=== PATIENT | female | born 1935 | race Caucasian/White ===

== ENCOUNTER 2016-09-05 13:34 | Emergency (ER) | payer OTHER, MEDICARE ==
--- NOTE | 2016-09-05 13:39 | EDPHY ---
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 - Social History Smoking Status: Never smoked Allergies/Adverse Reactions: No Known Allergies Allergy (Verified 11/14/14 14:37) Home Medications: Medication Instructions Recorded Spironolactone [Aldactone 25 MG 25 mg PO DAILY #30 tab 11/01/13 (*)] C/E/Zn/Cu/OM3/DHA/EPA/LUT/ZEAX 1 cap PO DAILY 11/14/14 [Preservision Areds 2 Softgel] Digoxin 250 mcg PO DAILY 11/14/14 Herbals/Supplements -Info Only 1 ea PO DAILY 11/14/14 Warfarin Sodium [Coumadin 5MG (*)] 5 mg PO MWF@16 11/14/14 Warfarin Sodium [Coumadin 5MG (*)] 7.5 mg PO SUTUTHSA@17 11/14/14 Carvedilol [Coreg (*)] 6.25 mg PO BID #60 tab 11/18/14 Furosemide [Lasix] 20 mg PO DAILY #30 tab 11/18/14 Lisinopril 2.5 mg PO DAILY #0 tablet 11/18/14 Medical Decision Making ED Course/Re-evaluation: CHIEF COMPLAINT: HISTORY OF PRESENT ILLNESS: must have 4 elements: Location, Quality, Severity , Duration, Timing, Context, Modifying Factors, Associated Signs and Symptoms REVIEW OF SYSTEMS: A 10 point review of systems was performed and is negative with the exception of the elements mentioned in the history of present illness. PHYSICAL EXAM: HR, BP, O2 Sat, RR. Temp noted General Appearance: Alert, well hydrated, appropriate, and non-toxic appearing. Head: Atraumatic without scalp tenderness or obvious injury Eyes: Pupils equal, round, reactive to light and accommodation, EOMI, no trauma , no injection. Ears: Clear bilaterally, no perforation, normal landmarks Nose: Atraumatic, no rhinorrhea, clear. Throat: There is no erythema or exudates, no lesions, normal tonsils, mucus membranes moist. Neck: Supple, 2+ carotid upstroke, nontender, no lymphadenopathy. Respiratory: No retractions, no distress, no wheezes, and no accessory muscle use. Lungs are clear to auscultation bilaterally. Cardiovascular: Regular rate and rhythm, no murmurs, rubs, or gallops. Bilateral carotid, radial, dorsalis pedis, and posterior tibial pulses intact. Good capillary refill all extremities. Gastrointestinal: Abdomen is soft, nontender, non-distended, no masses, no rebound, no guarding, no peritoneal signs. Musculoskeletal: Normal active ROM of all extremities, atraumatic. Neurological: Alert, appropriate, and interactive. The patient has normal DTRs and non-focal cranial nerves, motor, sensory, and cerebellar exam. Skin: No rashes, good turgor, no nodules on palpation. Past medical history: Past surgical history: Family history: Social history: DIAGNOSTICS/PROCEDURES/CRITICAL CARE TIME: DIFFERENTIAL DIAGNOSIS: MEDICAL DECISION MAKING:
--- NOTE | 2016-09-05 13:40 | EDPHY ---
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 - Social History Smoking Status: Never smoked Constitutional: Initial Vital Signs Temperature (C) 37 C 09/05/16 13:58 Heart Rate 87 09/05/16 13:58 Respiratory Rate 16 09/05/16 13:58 Blood Pressure 130/75 H 09/05/16 13:58 O2 Sat (%) 96 09/05/16 13:58 O2 Delivery Mode Room Air Allergies/Adverse Reactions: No Known Allergies Allergy (Verified 11/14/14 14:37) Home Medications: Medication Instructions Recorded Spironolactone [Aldactone 25 MG 25 mg PO DAILY #30 tab 11/01/13 (*)] C/E/Zn/Cu/OM3/DHA/EPA/LUT/ZEAX 1 cap PO DAILY 11/14/14 [Preservision Areds 2 Softgel] Digoxin 250 mcg PO DAILY 11/14/14 Herbals/Supplements -Info Only 1 ea PO DAILY 11/14/14 Warfarin Sodium [Coumadin 5MG (*)] 5 mg PO MWF@16 11/14/14 Warfarin Sodium [Coumadin 5MG (*)] 7.5 mg PO SUTUTHSA@17 11/14/14 Carvedilol [Coreg (*)] 6.25 mg PO BID #60 tab 11/18/14 Furosemide [Lasix] 20 mg PO DAILY #30 tab 11/18/14 Lisinopril 2.5 mg PO DAILY #0 tablet 11/18/14 Medical Decision Making ED Course/Re-evaluation: CHIEF COMPLAINT: Heart palpitations, memory loss. HISTORY OF PRESENT ILLNESS: This patient is a 81 year old female arriving by EMS from her living facility after an episode of what appeared to be acute heart palpitations, per staff. The patient has a cardiac pacemaker and defibrillator that was last set off six months prior to arrival. Upon arrival to the ED, the patient is unsure why she is here. She reports that she is unable to remember the episode but does believe that she felt "off." Staff reports evidence of memory deficits but she is unaware of this. She does not believe she lost consciousness during the episode. She takes Warfarin daily. REVIEW OF SYSTEMS: A 10 point review of systems was performed and is negative with the exception of the elements mentioned in the history of present illness. PHYSICAL EXAM: HR, BP, O2 Sat, RR. Temp noted General Appearance: Alert, well hydrated, appropriate, and non-toxic appearing. Head: Atraumatic without scalp tenderness or obvious injury Eyes: Pupils equal, round, reactive to light and accommodation, EOMI, no trauma , no injection. Ears: Clear bilaterally, no perforation, normal landmarks Nose: Atraumatic, no rhinorrhea, clear. Throat: There is no erythema or exudates, no lesions, normal tonsils, mucus membranes moist. Neck: Supple, 2+ carotid upstroke, nontender, no lymphadenopathy. Respiratory: No retractions, no distress, no wheezes, and no accessory muscle use. Lungs are clear to auscultation bilaterally. Cardiovascular: Regular rate and rhythm, no murmurs, rubs, or gallops. Bilateral carotid, radial, dorsalis pedis, and posterior tibial pulses intact. Good capillary refill all extremities. Gastrointestinal: Abdomen is soft, nontender, non-distended, no masses, no rebound, no guarding, no peritoneal signs. Musculoskeletal: Normal active ROM of all extremities, atraumatic. Neurological: Alert, appropriate, and interactive. The patient has normal DTRs and non-focal cranial nerves, motor, sensory, and cerebellar exam. Skin: No rashes, good turgor, no nodules on palpation. Past medical history: Cardiac pacemaker and defibrillator, hypertension, CHF. Past surgical history: Non-contributory. Family history: Non-contributory. Social history: Lives at [facility]. DIAGNOSTICS/PROCEDURES/CRITICAL CARE TIME: EKG INTERPRETATION: The 12 lead EKG was interpreted by myself: Sinus or extopic atrial rhythm, rate 87; first degree AV block; low voltage in frontal leads. See hard copy and/or "tracemaster" electronic copy for interpretation. DIFFERENTIAL DIAGNOSIS: The differential diagnosis for the patient's heart palpitations included but was not limited to myocardial ischemia, ventricular tachycardia, or, electrolyte abnormality. MEDICAL DECISION MAKING: This 81 year old female presents with amnesia suggestive of a brief episode of heart rhythm abnormality prior to presentation to the ED. The pacemaker rep has been contacted and will interrogate the pacemaker at bedside. 1709: Pacemaker new accounts representative interrogated the pacemaker and reports to me that the patient has not had any evidence of tachycardia since May. - Data Points Laboratory Results: Laboratory Results 09/05/16 13:30 09/05/16 13:30 09/05/16 13:30 WBC 5.86 10^3/uL (3.80-9.50) RBC 4.47 10^6/uL (4.18-5.33) Hgb 13.9 g/dL (12.6-16.3) Hct 40.4 % (38.0-47.0) MCV 90.4 fL (81.5-99.8) MCH 31.1 pg (27.9-34.1) MCHC 34.4 g/dL (32.4-36.7) RDW 13.7 % (11.5-15.2) Plt Count 171 10^3/uL (150-400) MPV 9.1 fL (8.7-11.7) Neut % (Auto) 64.5 % (39.3-74.2) Lymph % (Auto) 26.5 % (15.0-45.0) [place] % (Auto) 7.2 % (4.5-13.0) Eos % (Auto) 1.4 % (0.6-7.6) Baso % (Auto) 0.2 L % (0.3-1.7) Nucleat RBC Rel Count 0.0 % (0.0-0.2) Absolute Neuts (auto) 3.79 10^3/uL (1.70-6.50) Absolute Lymphs (auto) 1.55 10^3/uL (1.00-3.00) Absolute Monos (auto) 0.42 10^3/uL (0.30-0.80) Absolute Eos (auto) 0.08 10^3/uL (0.03-0.40) Absolute Basos (auto) 0.01 L 10^3/uL (0.02-0.10) Absolute Nucleated RBC 0.00 10^3/uL (0-0.01) Immature Gran % 0.2 % (0.0-1.1) Immature Gran # 0.01 10^3/uL (0.00-0.10) PT 24.8 H SEC (12.0-15.0) INR 2.22 H (0.83-1.16) APTT 31.7 SEC (23.0-38.0) Sodium 140 mEq/L (134-144) Potassium 4.8 mEq/L (3.5-5.2) Chloride 101 mEq/L (97-110) Carbon Dioxide 29 mEq/l (22-31) Anion Gap 10 mEq/L (8-16) BUN 20 mg/dL (7-23) Creatinine 0.9 mg/dL (0.6-1.0) Estimated GFR > 60 Glucose 132 H mg/dL (70-100) Calcium 9.5 mg/dL (8.5-10.4) Magnesium 2.0 mg/dL (1.6-2.3) Troponin I < 0.012 ng/mL (0-0.034) Departure - Departure Disposition: Home, Routine, Self-Care Clinical Impression: Palpitations Condition: Good Instructions: Palpitations (ED) Additional Instructions: 1. Follow-up with your medical accounting clerk tomorrow for further evaluation. 2. Return to the Emergency Department with heart palpitations, chest pain, confusion, memory loss, or other serious concerns. Referrals: Jordon Anderson MD [Medical Doctor] - As per Instructions Report Scribed for: Randell Witt Report Scribed by: Tavia Elizabeth Date of Report: 09/05/16 Time of Report: 13:41
--- NOTE | 2016-09-05 13:47 | CPEKG ---
Heart Rate: 87 RR Interval: 690 P-R Interval: 220 QRSD Interval: 94 QT Interval: 344 QTC Interval: 414 P [place]: -83 QRS [place]: 38 T Wave [place]: 109 EKG Severity - ABNORMAL ECG - EKG Impression: SINUS OR ECTOPIC ATRIAL RHYTHM EKG Impression: FIRST DEGREE AV BLOCK EKG Impression: LOW VOLTAGE IN FRONTAL LEADS EKG Impression: CONSIDER ANTEROSEPTAL INFARCT Electronically Signed By: Randell Witt 05-Sep-2016 21:13:48
[2016-09-05 13:58] LABS: % IMMATURE GRANULYOCYTES 0.2 % (0.0-1.1); ABSOLUTE IMMATURE GRANULOCYTES 0.01 10^3/uL (0.00-0.10); ADD DIFF? NO; ADD MORPH? NO; ADD SCAN? NO; ATYPICAL LYMPHOCYTE FLAG 20 (0-99); FRAGMENT RBC FLAG 0 (0-99); HEMATOCRIT 40.4 % (38.0-47.0); HEMOGLOBIN 13.9 g/dL (12.6-16.3); LEFT SHIFT FLG 0 (0-99); LIPEMIA HEMOLYSIS FLAG 90 (0-99); MEAN CELL HEMOGLOBIN 31.1 pg (27.9-34.1); MEAN CELL HEMOGLOBIN CONCENTR. 34.4 g/dL (32.4-36.7); MEAN CELL VOLUME 90.4 fL (81.5-99.8); MEAN PLATELET VOLUME 9.1 fL (8.7-11.7); PLATELET CLUMPS FLAG 0 (0-99); PLATELET COUNT 171 10^3/uL (150-400); RED BLOOD CELL COUNT 4.47 10^6/uL (4.18-5.33); RED CELL DISTRIBUTION WIDTH 13.7 % (11.5-15.2)
[2016-09-05 14:01] LABS: INR 2.22 (0.83-1.16); PROTIME(PATIENT) 24.8 SEC (12.0-15.0)
[2016-09-05 14:02] LABS: APTT 31.7 SEC (23.0-38.0)
[2016-09-05 14:05] LABS: ANION GAP 10 mEq/L (8-16); CALCIUM 9.5 mg/dL (8.5-10.4); CARBON DIOXIDE 29 mEq/l (22-31); CHLORIDE 101 mEq/L (97-110); CREATININE 0.9 mg/dL (0.6-1.0); GLOMERULAR FILTRATION RATE > 60; GLUCOSE 132 mg/dL (70-100); POTASSIUM 4.8 mEq/L (3.5-5.2); SODIUM 140 mEq/L (134-144)
[2016-09-05 14:17] LABS: TROPONIN I < 0.012 ng/mL (0-0.034)
[2016-09-05 16:17] VITALS: O2SAT 97
[2016-09-05 17:28] VITALS: BP 147/89; PULSE 84; RESP 15; TEMP 98.6
== END 2016-09-05 17:31 | disposition home or self-care (01) ==
LOC: EDUNIT#
DX: R00.2 Palpitations (principal); I10 Essential (primary) hypertension; Z79.01 Long term (current) use of anticoagulants; Z95.0 Presence of cardiac pacemaker